=== PATIENT | female | born 1980 | race American Indian/Alaskan Native ===

== ENCOUNTER 2018-12-03 13:21 | Emergency (ER) | payer MEDICAID, OTHER ==
[2018-12-03 14:04] VITALS: BP 150/86
--- NOTE | 2018-12-03 14:11 | Emergency Department Report ---
Blank Doc - Documentation Documentation: 38 y/o female presents to ed c/o epigastric pain that readiated to RUQ. pain s harp and buring worse with ETOH. History of unknown liver issues in 2010. no edema or hemoptysis. does reporte nausea and vomiting and diarrhea. no trauma. \ Plan Labs RUQ us discussed ETOH cessation
[2018-12-03 14:33] LABS: Basophils % (Auto) 0.4 % (0.0-1.8); Eosinophils # (Auto) 0.3 K/mm3 (0.0-0.4); Eosinophils % (Auto) 3.7 % (0.0-4.3); Hematocrit 36.1 % (30.3-42.9); Hemoglobin 12.1 gm/dl (10.1-14.3); Lymphocytes % (Auto) 23.1 % (13.4-35.0); Mean Corpuscular HGB Conc 33 % (30-34); Mean Corpuscular Volume 90 fl (79-97); Monocytes # (Auto) 0.7 K/mm3 (0.0-0.8); Platelet Count 389 K/mm3 (140-440); Red Blood Count 4.01 M/mm3 (3.65-5.03); Red Cell Distribution Width 14.7 % (13.2-15.2)
[2018-12-03 14:51] LABS: Alanine Aminotransferase 28 units/L (7-56); Albumin 3.8 g/dL (3.9-5); BUN/Creatinine Ratio 8; Blood Urea Nitrogen 4 mg/dL (7-17); Hemolysis Index 6
[2018-12-03 14:52] LABS: Bilirubin,Direct < 0.2 mg/dL (0-0.2)
[2018-12-03] MEDS ORDERED: TORADOL IV ONE (15:22)
[2018-12-03] MEDS ORDERED: NACL 0.9% 1000 ML 1,000 ML IV ONE (15:22)
--- NOTE | 2018-12-03 15:28 | Emergency Department Report ---
ED Abdominal Pain HPI - General Chief Complaint: Abdominal Pain Stated Complaint: STOMACH PAIN Time Seen by Provider: 12/03/18 14:00 Source: patient Mode of arrival: Ambulatory Limitations: No Limitations - History of Present Illness Initial Comments: 38-year-old female with no prior medical history of present see if of epigastric pain for the past 3 days. she admit small nausea no vomiting. Patient states pain is localized to the gastric region. Patient denies any past medical history of any conditions. She denies unusual food or drinks. She denies fever/diarrhea. MD Complaint: abdominal pain -: Gradual Location: epigastric Radiation: none Migration to: no migration Severity: moderate Severity scale (0 -10): 7 Quality: aching Consistency: intermittent Associated Symptoms: nausea - Related Data Previous Rx's Medication Instructions Recorded Last Taken Type Ferrous Sulfate [Feosol 325 MG tab] 325 mg PO BID #60 tablet 02/03/16 Unknown Rx HYDROcodone/APAP 5-325 [[place] 1 each PO Q6HR PRN #30 tablet 02/03/16 Unknown Rx 5/325] Ibuprofen [Motrin] 800 mg PO Q8HR PRN #30 tablet 02/03/16 Unknown Rx Vit Calc,Iron,Folic 1 each PO DAILY #30 tablet 02/03/16 Unknown Rx [ Vitamins] Dicyclomine [Bentyl] 10 mg PO BID #20 capsule 12/03/18 Unknown Rx Famotidine [Pepcid] 20 mg PO BID #20 tablet 12/03/18 Unknown Rx Mag Hydrox/Aluminum Hyd/Simeth 15 ml PO TID #1 oral.susp 12/03/18 Unknown Rx [Maalox Advanced Suspension] Ondansetron [Zofran ODT TAB] 8 mg PO Q12HR #20 tab.rapdis 12/03/18 Unknown Rx Allergies Allergy/AdvReac Type Severity Reaction Status Date / Time No Known Allergies Allergy Verified 02/03/16 11:03 ED Review of Systems ROS: Stated complaint: STOMACH PAIN Other details as noted in HPI Comment: All other systems reviewed and negative ED Past Medical Hx - Past Medical History Hx Hypertension: No Hx Congestive Heart Failure: No Hx Diabetes: No Hx Deep Vein Thrombosis: No Hx Renal Disease: No Hx Sickle Cell Disease: No Hx Seizures: No Hx Asthma: No Hx COPD: No Hx HIV: No Additional medical history: liver prob, uterine fibroids - Surgical History Additional Surgical History: c sect x 3 - Social History Smoking Status: Current Every Day Smoker Substance Use Type: Alcohol - Medications Home Medications: Home Medications Medication Instructions Recorded Confirmed Last Taken Type Ferrous Sulfate [Feosol 325 MG tab] 325 mg PO BID #60 tablet 02/03/16 Unknown Rx HYDROcodone/APAP 5-325 [[place] 1 each PO Q6HR PRN #30 tablet 02/03/16 Unknown Rx 5/325] Ibuprofen [Motrin] 800 mg PO Q8HR PRN #30 tablet 02/03/16 Unknown Rx Vit Calc,Iron,Folic 1 each PO DAILY #30 tablet 02/03/16 Unknown Rx [ Vitamins] Dicyclomine [Bentyl] 10 mg PO BID #20 capsule 12/03/18 Unknown Rx Famotidine [Pepcid] 20 mg PO BID #20 tablet 12/03/18 Unknown Rx Mag Hydrox/Aluminum Hyd/Simeth 15 ml PO TID #1 oral.susp 12/03/18 Unknown Rx [Maalox Advanced Suspension] Ondansetron [Zofran ODT TAB] 8 mg PO Q12HR #20 tab.rapdis 12/03/18 Unknown Rx ED Physical Exam - General Limitations: No Limitations General appearance: alert, in no apparent distress - Head Head exam: Present: atraumatic, normocephalic - Eye Eye exam: Present: normal appearance - ENT ENT exam: Present: mucous membranes moist - Neck Neck exam: Present: normal inspection - Respiratory Respiratory exam: Present: normal lung sounds bilaterally. Absent: respiratory distress - Cardiovascular Cardiovascular Exam: Present: regular rate, normal rhythm. Absent: systolic murmur, diastolic murmur, rubs, gallop - GI/Abdominal GI/Abdominal exam: Present: soft, normal bowel sounds - Extremities Exam Extremities exam: Present: normal inspection - Back Exam Back exam: Present: normal inspection - Neurological Exam Neurological exam: Present: alert, oriented X3 - Psychiatric Psychiatric exam: Present: normal affect, normal mood - Skin Skin exam: Present: warm, dry, intact, normal color. Absent: rash ED Course Vital Signs 12/03/18 14:00 Temperature 98 F Pulse Rate 81 Respiratory 14 Rate Blood Pressure 150/86 O2 Sat by Pulse 100 Oximetry ED Medical Decision Making - Lab Data Result diagrams: 12/03/18 14:23 12/03/18 14:23 - Radiology Data Radiology results: report reviewed, image reviewed Ultrasound shows no acute findings. - Medical Decision Making 38-year-old female presents with gastritis ED course patient was able to tolerate by mouth juice, glass of water. She is no active vomiting. 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 Discussed to follow up with primary care as well. Take medication as prescribed If worsening symptoms return to ED. Critical care attestation.: If time is entered above; I have spent that time in minutes in the direct care of this critically ill patient, excluding procedure time. ED Disposition Clinical Impression: Gastroenteritis Disposition: [id number] TO HOME OR SELFCARE Is pt being admited?: No Does the pt Need Aspirin: No Condition: Stable Instructions: Abdominal Pain (ED), Acute Nausea and Vomiting (ED), Dehydration (ED) Additional Instructions: Make sure to follow up with the primary care physician as discussed. Take all your medications as you've been prescribed. If you have any worsening symptoms or develop new symptoms please return to ED immediately. Prescriptions: Dicyclomine [Bentyl] 10 mg PO BID #20 capsule Famotidine [Pepcid] 20 mg PO BID #20 tablet Mag Hydrox/Aluminum Hyd/Simeth [Maalox Advanced Suspension] 15 ml PO TID #1 oral.susp Ondansetron [Zofran ODT TAB] 8 mg PO Q12HR #20 tab.rapdis Referrals: TESFAYE KOENIG MD [Primary Care Provider] - 3-5 Days [facility] [Provider Group] - 3-5 Days Forms: Accompanied Note, Work/School Release Form(ED) Time of Disposition: 16:57
[2018-12-03 16:09] LABS: Bilirubin,Urine NEG (Negative); Color,Urine Straw (Yellow); Protein,Urine <15 mg/dL mg/dL (Negative); Urobilinogen,Urine < 2.0 mg/dL (<2.0)
[2018-12-03 16:11] LABS: Blood,Urine MOD (Negative); WBC,Urine < 1.0 /HPF (0.0-6.0)
--- NOTE | 2018-12-03 16:18 | Ultrasound Report ---
FINAL REPORT EXAM: US ABDOMEN LIMITED HISTORY: ruq pain TECHNIQUE: Ultrasound abdomen PRIORS: None. FINDINGS: Within the right lobe of the liver there is an echogenic focus 1.1 x 1.3 x 1.4 centimeters may reflec t hemangioma versus focal fat. No evidence of cholelithiasis or gallbladder wall thickening. No pericholecystic fluid seen. The common bile duct is within normal limits measuring 0.4 centimeters Right kidney demonstrates no evidence of hydronephrosis. It measures 10.3 x 4.3 x 4.8 centimeters IMPRESSION: Hemangioma versus focal fat within the right lobe of the liver No evidence of biliary obstruction or cholelithiasis
== END 2018-12-03 17:12 | disposition home or self-care (01) ==
LOC: ED 13:21
DX: K52.9 Noninfective gastroenteritis and colitis, unspecified (principal); F17.200 Nicotine dependence, unspecified, uncomplicated; Z79.899 Other long term (current) drug therapy
CPT/HCPCS: 36415; 76705; 80048; 80076; 81001; 83690; 85025